=== PATIENT | male | born 1970 | race Caucasian/White ===

== ENCOUNTER 2019-01-03 08:15 | Emergency (ER) | payer SELFPAY ==
[~2019-01-03] VITALS: Ht 175.3 cm; Wt 90.7 kg
[2019-01-03] MEDS ORDERED: IBUPROFEN 800 MG (MOTRIN) TAB PO STA (09:23)
[2019-01-03] MEDS ORDERED: NS IV 1000 ML 1,000 ML IV ONE (09:23)
[2019-01-03] MEDS ORDERED: ACETAMINOPHEN 500 MG TAB (TYLENOL) PO STA (09:23)
[2019-01-03] MEDS ORDERED: RX-ALBUTEROL INHALER (PROAIR) 8 GM IH STA (09:24)
[2019-01-03] MEDS ORDERED: DEXAMETHASONE 10 MG/ML (DECADRON) 1 ML VIAL IV ONE (09:30)
--- NOTE | 2019-01-03 09:37 | ED Cough/URI ---
General Chief Complaint: Cough/Cold/Flu Symptoms Stated Complaint: HEADACHE;HIGH FEVER;COUGH;LOSS OF APPETITE Nursing Triage Note: ARRIVED VIA AMB TO ROOM 05. STATES SAT AT NOON HE STARTED FEELING ILL WITH FEVER, COUGH, AND DIARRHEA. STATES HE HAS BEEN TAKING TYLENOL/MOTRIN BUT IT IS NOT HELPING. LAST MOTRIN WAS LATE LAST NIGHT. Sepsis Screen: Possible Sepsis Risk Source: patient Exam Limitations: no limitations History of Present Illness Date Seen by Provider: Jan 03, 2019 Time Seen by Provider: 09:17 Initial Comments Here with report of feeling ill, fever, chills, body aches, diarrhea and vomiting since Wednesday. Has been taking Tylenol ibuprofen. Has not had anything today. States overall feels terrible and is coughing quite a bit. Feels like there is something swollen in his throat. He is gagging on that and does have swollen uvula. He quit smoking 2 weeks ago. Timing/Duration: other (3 days) Severity/Quality: moderate, dry cough Prior Episodes/Possible Cause: occasional episodes Modifying Factors: Worse With Coughing Associated Symptoms: cough, fever/chills, muscle aches, nasal congestion, shortness of breath, sore throat, wheezing Allergies and Home Medications Allergies Coded Allergies: No Known Drug Allergies (Unverified , 01/03/19) Home Medications No Active Prescriptions or Reported Meds Patient Home Medication List Home Medication List Reviewed: Yes Review of Systems Review of Systems Constitutional: see HPI, chills, fever EENTM: nose congestion, throat pain Respiratory: cough, short of breath Cardiovascular: no symptoms reported Gastrointestinal: see HPI Genitourinary: No dysuria, No pain Musculoskeletal: see HPI Skin: no symptoms reported Psychiatric/Neurological: No Symptoms Reported All Other Systems Reviewed Negative Unless Noted: Yes Past Cnhzmet-Sqhawy-Znaebk Hx Past Med/Social Hx: Reviewed Nursing Past Med/Soc Hx Patient Social History Alcohol Use: Rarely Uses Recreational Drug Use: No Smoking Status: Former Smoker Recent Foreign Travel: No Contact w/Someone Who Travel: No Recent Infectious Disease Expo: No Recent Hopitalizations: No Past Medical History Surgeries: No Respiratory: No Cardiac: No Neurological: No Genitourinary: No Gastrointestinal: No Musculoskeletal: No Endocrine: No HEENT: No Cancer: No Psychosocial: No Integumentary: No Family Medical History Reviewed Nursing Family Hx Physical Exam Vital Signs - First Documented 01/03/19 08:30 Temp 101.1 Pulse 106 Resp 18 B/P (MAP) 144/90 (108) Pulse Ox 93 O2 Delivery Room Air Capillary Refill : Less Than 3 Seconds Height: 5'9.00" Weight: 200lbs. oz. [id number]; BMI Method:Stated General Appearance: no apparent distress, mild distress HEENT: PERRL/EOMI, pharyngeal erythema, other (uvula swollen) Neck: full range of motion, supple Respiratory: no respiratory distress, no accessory muscle use, other (coarse sounds with cough and clears after coughing.) Cardiovascular: no murmur, tachycardia Gastrointestinal: non tender, soft Extremities: non-tender, normal inspection Neurologic/Psychiatric: alert, oriented x 3 Skin: normal color, warm/dry Progress/Results/Core Measures Suspected Sepsis Recent Fever Within 48 Hours: Yes Infection Criteria Present: Suspected New Infection New/Unexplained Altered Menta: No Sepsis Screen: Possible Sepsis Risk SIRS Temperature:101.1 Pulse: 106 Respiratory Rate: 18 Laboratory Tests 01/03/19 09:40: White Blood Count 10.6 Blood Pressure 144 /90 Mean: 108 Laboratory Tests 01/03/19 09:40: Creatinine 0.99, Platelet Count 198 Results/Orders Lab Results Laboratory Tests Test 01/03/19 09:40 Range/Units White Blood Count 10.6 4.3-11.0 10^3/uL Red Blood Count 4.58 4.35-5.85 10^6/uL Hemoglobin 14.2 13.3-17.7 G/DL Hematocrit 41 40-54 % Mean Corpuscular Volume 90 80-99 FL Mean Corpuscular Hemoglobin 31 25-34 PG Mean Corpuscular Hemoglobin Concent 35 32-36 G/DL Red Cell Distribution Width 12.7 10.0-14.5 % Platelet Count 198 130-400 10^3/uL Mean Platelet Volume 10.4 7.4-10.4 FL Neutrophils (%) (Auto) 83 H 42-75 % Lymphocytes (%) (Auto) 8 L 12-44 % Monocytes (%) (Auto) 8 0-12 % Eosinophils (%) (Auto) 0 0-10 % Basophils (%) (Auto) 0 0-10 % Neutrophils # (Auto) 8.8 H 1.8-7.8 X 10^3 Lymphocytes # (Auto) 0.9 L 1.0-4.0 X 10^3 Monocytes # (Auto) 0.9 0.0-1.0 X 10^3 Eosinophils # (Auto) 0.0 0.0-0.3 10^3/uL Basophils # (Auto) 0.0 0.0-0.1 10^3/uL Sodium Level 133 L 135-145 MMOL/L Potassium Level 3.8 3.6-5.0 MMOL/L Chloride Level 100 98-107 MMOL/L Carbon Dioxide Level 19 L 21-32 MMOL/L Anion Gap 14 5-14 MMOL/L Blood Urea Nitrogen 14 7-18 MG/DL Creatinine 0.99 0.60-1.30 MG/DL Estimat Glomerular Filtration Rate > 60 BUN/Creatinine Ratio 14 Glucose Level 93 70-105 MG/DL Calcium Level 9.0 8.5-10.1 MG/DL Micro Results Microbiology 01/03/19 Influenza Types A,B Antigen (ROBERTO CARLOS) - Final, Complete My Orders Orders - BECKY MCKEON MD Influenza A And B Antigens (01/03/19 08:36) Basic Metabolic Panel (01/03/19 09:23) Cbc With Automated Diff (01/03/19 09:23) Saline Lock/Iv-Start (01/03/19 09:23) Ns Iv 1000 Ml (Sodium Chloride 0.9%) (01/03/19 09:23) Chest Pa/Lat (2 View) (01/03/19 09:23) Acetaminophen Tablet (Tylenol Tablet) (01/03/19 09:23) Ibuprofen Tablet (Motrin Tablet) (01/03/19 09:23) Dexamethasone Injection (Decadron Inject (01/03/19 09:30) Rx-Albuterol Inhaler (Rx-Proair) (01/03/19 09:24) Medications Given in ED Current Medications Medications Dose Ordered Sig/Renae Route Start Time Stop Time Status Last Admin Dose Admin Dexamethasone Sodium Phosphate 10 mg ONCE ONCE IV 01/03/19 09:30 01/03/19 09:31 DC 01/03/19 09:38 10 MG Sodium Chloride 1,000 ml @ 0 mls/hr Q0M ONCE IV 01/03/19 09:23 01/03/19 09:25 DC 01/03/19 09:39 1,000 MLS/HR Vital Signs/I&O 01/03/19 08:30 Temp 101.1 Pulse 106 Resp 18 B/P (MAP) 144/90 (108) Pulse Ox 93 O2 Delivery Room Air Capillary Refill : Less Than 3 Seconds Blood Pressure Mean: 108 Progress Note : Progress Note Seen and evaluated. Influenza positive. Patient has had persistent vomiting and is overall not feeling well. We will check basic labs and initiated IV with normal saline 1 L bolus. Ibuprofen and Tylenol ordered for fever. We will get chest x-ray. Patient to be sent home with albuterol inhaler. Monitor patient. 1250: Discharge delayed due to critical patient in the emergency department. Overall doing better. He did receive the Tylenol and ibuprofen for fever and that has helped. Discharged home with return precautions. Patient verbalize understanding instructions and agreement with plan. Diagnostic Imaging Diagonstic Imaging: Xray Plain Films/CT/US/NM/MRI: chest Comments NAME: CORBIN MCCLAIN [facility] REC#: [id number] PT STATUS: REG ER : 1970 PHYSICIAN: BECKY MCKEON MD ADMIT DATE: 01/03/19/ER Signed Date of Exam: 01/03/19 CHEST PA/LAT (2 VIEW) INDICATION: Cough. PA and lateral views were obtained. FINDINGS: The heart size, mediastinal configuration, and pulmonary vascularity are within normal limits. There is no pleural effusion, pneumothorax, or pneumonia. The osseous structures are unremarkable. IMPRESSION: No acute cardiopulmonary abnormality. Dictated by: Dictated on workstation # [id number] Dict: 01/03/19 1014 Trans: 01/03/19 1048 Interpreted by: TERRELL CAAL MD Electronically signed by: TERRELL CAAL MD 01/03/19 1048 Departure Impression Primary Impression: Influenza Disposition: 01 HOME, SELF-CARE Condition: Stable Departure-Patient Inst. Decision time for Depature: 12:53 Referrals: NO,LOCAL PHYSICIAN (PCP) Primary Care Physician Patient Instructions: Flu, Adult (DC) Add. Discharge Instructions: All discharge instructions reviewed with patient and/or family. Voiced understanding. Continue to drink plenty of fluids. You may use ibuprofen 800 mg every 8 hours as needed for fever or pain. You may use Tylenol for less acetaminophen 1000 mg every 8 hours as needed for fever or pain. Get plenty of rest. Follow-up with your Dr. in a few days for recheck. You need to be off work tonight and tomorrow night. Work note was supplied. Return for worse pain, fever, vomiting, weakness, breathing problems or other concerns as needed. Scripts No Active Prescriptions or Reported Meds Work/School Note: Work Release Form Date Seen in the Emergency Department: Jan 03, 2019 Return to Work: Jan 05, 2019 Restrictions: Return-No Fever (24hrs) BECKY MCKEON MD Jan 03, 2019 09:37
[2019-01-03 09:49] LABS: BASOPHILS % (AUTO) 0 % (0-10); EOSINOPHILS % (AUTO) 0 % (0-10); HEMATOCRIT 41 % (40-54); HEMOGLOBIN 14.2 G/DL (13.3-17.7); LYMPHOCYTES # (AUTO) 0.9 X 10^3 (1.0-4.0); LYMPHOCYTES % (AUTO) 8 % (12-44); MEAN CORPUSCULAR HEMOGLOBIN 31 PG (25-34); MEAN CORPUSCULAR HGB CONC 35 G/DL (32-36); MEAN CORPUSCULAR VOLUME 90 FL (80-99); MEAN PLATELET VOLUME 10.4 FL (7.4-10.4); MONOCYTES # (AUTO) 0.9 X 10^3 (0.0-1.0); MONOCYTES % (AUTO) 8 % (0-12); NEUTROPHILS # (AUTO) 8.8 X 10^3 (1.8-7.8); NEUTROPHILS % (AUTO) 83 % (42-75); PLATELET COUNT 198 10^3/uL (130-400); RED CELL DISTRIBUTION WIDTH 12.7 % (10.0-14.5); WHITE BLOOD COUNT 10.6 10^3/uL (4.3-11.0)
--- NOTE | 2019-01-03 10:00 | NUR ---
LEONOR JUAREZ HELPING WITH PT'S CARE DUE TO ANOTHER EMERGENT PT THAT I AM TAKING CARE OF.
[2019-01-03 10:19] LABS: BUN/CREATININE RATIO 14; CARBON DIOXIDE 19 MMOL/L (21-32); CHLORIDE 100 MMOL/L (98-107); CREATININE SERUM 0.99 MG/DL (0.60-1.30); GFR ESTIMATED > 60; GLUCOSE 93 MG/DL (70-105); POTASSIUM 3.8 MMOL/L (3.6-5.0); SODIUM 133 MMOL/L (135-145)
--- NOTE | 2019-01-03 10:19 | Diagnostic Imaging Report ---
INDICATION: Cough. PA and lateral views were obtained. FINDINGS: The heart size, mediastinal configuration, and pulmonary vascularity are within normal limits. There is no pleural effusion, pneumothorax, or pneumonia. The osseous structures are unremarkable. IMPRESSION: No acute cardiopulmonary abnormality. Dictated by: Dictated on workstation # [id number]
--- NOTE | 2019-01-03 12:35 | NUR ---
CRISS GIL NOTIFYING PT OF THE REASON FOR THE DELAY.
[2019-01-03 13:01] VITALS: BP 129/76
== END 2019-01-03 13:01 | disposition home or self-care (01) ==
LOC: ER 08:16
DX: J11.1 Influenza due to unidentified influenza virus with other respiratory manifestations (principal); Z87.891 Personal history of nicotine dependence
CPT/HCPCS: 36415; 71046; 80048; 85025; 87804

== ENCOUNTER → 2022-11-07 | Outpatient (CLI) | payer SELFPAY ==
--- NOTE | 2022-11-07 15:00 | Diagnostic Imaging Report ---
INDICATION: Shortness of air, fever for several days.. TECHNIQUE: Two view chest 2:55 PM CORRELATION STUDY: 01/03/2019 FINDINGS: The heart size, mediastinal configuration and pulmonary vasculature are within normal limits. Mild bibasilar infiltrate-like opacities are present. No ryann lobar consolidation. No pleural effusion. Visualized osseous structures are unremarkable. IMPRESSION: 1. Suspect for mild bibasilar infiltrate-like opacities. No ryann lobar consolidation. Faxed to [facility] at 2:59 p.m. by cvb. Dictated by: Dictated on workstation # [id number]
== END ==
LOC: RAD 14:37
PROVIDERS: ATTEND Registered Nurse Critical Care Medicine
DX: J15.8 Pneumonia due to other specified bacteria (principal)
CPT/HCPCS: 71046